=== PATIENT | female | born 1975 | race African-American/Black ===

== ENCOUNTER 2016-07-12 22:59 | Emergency (ER) | payer OTHER ==
[2016-07-12 23:15] VITALS: BP 126/82; PULSE 80; TEMP 99.3; BMI 39.6
--- NOTE | 2016-07-12 23:19 | PDOC ---
History of Present Illness - General Chief Complaint: Pain Stated Complaint: LT ARM PAIN Time Seen by Provider: 07/12/16 23:03 - History of Present Illness Initial Comments: This 41-year-old woman with no significant past medical history presents with a few week history of worsening left forearm pain. Patient states that she feels pain in the elbow/proximal forearm area when lifting objects. Patient works at [employer] and her job routinely involves lifting heavy boxes.; cannot recall any specific trauma to the area and denies falling or otherwise striking her left elbow/forearm area. She did fall approximately 5 months ago, sustaining a tear in the left shoulder. She currently has no shoulder symptoms. There is no numbness/paresthesias of the arm or hand. She denies weakness of the left arm. Past History - Past Medical History Allergies/Adverse Reactions: Allergies Allergy/AdvReac Type Severity Reaction Status Date / Time No Known Allergies Allergy Verified 01/15/16 05:20 Home Medications: Ambulatory Orders Diclofenac Sodium [Voltaren -] 75 mg PO BID PRN #12 tablet. 07/12/16 GI Disorders: Yes (GASTRITIS) - Psycho/Social/Smoking Cessation Hx Anxiety: No Suicidal Ideation: No Smoking Status: No Smoking History: Never smoked Have you smoked in the past 12 months: No Number of Cigarettes Smoked Daily: 0 Hx Alcohol Use: No Drug/Substance Use Hx: No Substance Use Type: None Review of Systems - Review of Systems Able to Perform ROS?: Yes Comments:: 12 point review of systems is negative except for what is noted in the history of present illness *Physical Exam - Vital Signs Last Vital Signs Temp Pulse Resp BP Pulse Ox 99.3 F 80 16 126/82 100 07/12/16 23:13 07/12/16 23:13 07/12/16 23:13 07/12/16 23:13 07/12/16 23:13 - Physical Exam Comments: GENERAL: Adult female, alert and oriented 3, in no acute distress HEAD: Normal with no signs of trauma. EYES: PERRLA, EOMI, sclera anicteric, conjunctiva clear. ENT: Ears normal, nares patent, oropharynx clear without exudates. Dry mucous membranes. NECK: Normal range of motion, supple without lymphadenopathy, JVD, or masses. LUNGS: Breath sounds equal, clear to auscultation bilaterally. No wheezes, and no crackles. HEART:Regular rate and rhythm, normal S1 and S2 without murmur, rub or gallop. ABDOMEN:.normal bowel sounds No guarding,tenderness or rebound.No masses No distention. EXTREMITIES: Left upper extremitymild tenderness to palpation lateral (radial) aspect of proximal forearm without edema or deformity Pain reproduced with flexion of elbow and supination of forearm Minimal tenderness of antecubital fossa; no step offs palpated in biceps tendon Strength intact with 5/5 motor strength in flexion/extension of elbow and movement of forearm Remainder of extremity exam is normal NEUROLOGICAL: Cranial nerves II through XII grossly intact. Normal speech. No focal neurological deficits. MUSCULOSKELETAL: Back non-tender to palpation, no CVA tenderness SKIN: Warm, Dry, normal turgor, no rashes or lesions noted. Medical Decision Making - Medical Decision Making Clinical presentation most consistent with strain of the left brachioradialis muscle. Patient had no specific trauma but is at risk for overusing this muscle in her work (lifting heavy boxes). Kenton wrap applied to the distal left upper arm/left elbow/proximal left forearm. Kenton wrap should be in place during the day until evaluation by orthopedic group. Patient has been seen by [facility] in the past. She will be given documentation not to work tomorrow; she is scheduled to have off from work the following day. She should call orthopedic office on Thursday, July 14 to arrange follow-up Although the patient has a history of gastritis, she occasionally takes Aleve for pain. Patient states that she will take the [id number] Aleve that she has at home after eating a meal. Also, prescription for diclofenac 75 mg twice a day as needed for pain will be transmitted to her pharmacy. *DC/Admit/Observation/Transfer Diagnosis at time of Disposition: Brachioradialis muscle tenderness - Discharge Dispostion Disposition: HOME Condition at time of disposition: Stable - Prescriptions Prescriptions: Diclofenac Sodium [Voltaren -] 75 mg PO BID PRN #12 tablet.dr DILLARD Reason: Pain - Referrals Referrals: Rik Villalba MD [Staff Physician] - 2 Days - Patient Instructions Printed Discharge Instructions: DI for Tendinitis Additional Instructions: kenton wrap during day until seen by orthopedic group avoid lifting/pushing/pulling heavy objects No work tomorrow Diclofenac 75 mg twice a day as needed ;TAKE WITH FOOD call Dr Villalba orthopedic group to followup within 2-3 days - Post Discharge Activity Work/School Note: Back to Work
== END 2016-07-12 23:49 | disposition home or self-care (01) ==
LOC: FER 22:59
DX: M79.632 Pain in left forearm (principal); K29.70 Gastritis, unspecified, without bleeding; X58.XXXA Exposure to other specified factors, initial encounter; Y93.9 Activity, unspecified; Y92.9 Unspecified place or not applicable
CPT/HCPCS: 99282-25

== ENCOUNTER 2016-09-19 22:27 | Emergency (ER) | payer OTHER ==
--- NOTE | 2016-09-19 22:30 | PDOC ---
History of Present Illness - General Chief Complaint: Pain, Acute Stated Complaint: ABDOMINAL PAIN Time Seen by Provider: 09/19/16 22:30 History Source: Patient Exam Limitations: No Limitations - History of Present Illness Initial Comments: 09/19/16 23:05 This is a 41-year-old female comes in complaining of a vaginal yeast infection. Patient said she gets a vaginal yeast infection around the time of her menses. Aeration is due for her menstrual period and is complaining of the a whitish discharge with itching. Patient denies any abdominal pain, pelvic pain, fever, chills or any other complaints. PAST MEDICAL HISTORY: no significant history PAST SURGICAL HISTORY: no significant history FAMILY HISTORY: no pertinant history SOCIAL HISTORY: Pt lives with family and is employed. MEDICATIONS: reviewed ALLERGIES: As per nursing notes Review of Systems General: No fevers or chills, no weakness, no weight loss HEENT: No change in vision. No sore throat,. No ear pain CardioVascular: No chest pain or shortness of breath Respiratory:No cough, or wheezing. Gastrointestinal: no nausea, vomitting, diarrhea or constipation, No rectal bleeding Genitourinary: No dysuria, hematuria, or frequency Musculoskeletal: No joint or muscle pain or swelling Neurologic: No headache, vertigo, dizziness or loss of consciousness Psychiatric: nor depression Skin: No rashes or easy bruising Endocrine: no increased thirst or abnormal weight change Allergic: no skin or latex allergy All other systems reviewed and normal GENERAL: The patient is awake, alert, and fully oriented, in no acute distress. HEAD: Normal with no signs of trauma. EYES: Pupils equal, round and reactive to light, extraocular movements intact, sclera anicteric, conjunctiva clear. EXTREMITIES: Normal range of motion, no edema. : There is a moderate amount of erythema of the external genitalia with a thick whitish discharge. There is some excoriations to the area. NEUROLOGICAL: Normal speech, normal gait. PSYCH: Normal mood, normal affect. SKIN: Warm, Dry, normal turgor, no rashes or lesions noted. Assessment and plan: This is a 41-year-old female with a vaginal yeast and infection. Patient given Diflucan here in the emergency room and a prescription for additional Diflucan. Patient told to follow-up with her central sterile technician regarding the frequent vaginal yeast infections. Past History - Past Medical History Allergies/Adverse Reactions: Allergies Allergy/AdvReac Type Severity Reaction Status Date / Time No Known Allergies Allergy Verified 01/15/16 05:20 Home Medications: Ambulatory Orders Fluconazole [Diflucan -] 100 mg PO ONCE #4 tablet MDD 1 09/19/16 GI Disorders: Yes (GASTRITIS) - Psycho/Social/Smoking Cessation Hx Anxiety: No Suicidal Ideation: No Smoking Status: No Smoking History: Never smoked Have you smoked in the past 12 months: No Number of Cigarettes Smoked Daily: 0 Hx Alcohol Use: No Drug/Substance Use Hx: No Substance Use Type: None *DC/Admit/Observation/Transfer Diagnosis at time of Disposition: Candidiasis of vagina - Discharge Dispostion Disposition: HOME Condition at time of disposition: Stable - Prescriptions Prescriptions: Fluconazole [Diflucan -] 100 mg PO ONCE #4 tablet MDD 1 - Patient Instructions Additional Instructions: I a prescription to your pharmacy for some additional medication that you can take for vaginal yeast infections if you're medication were given in the emergency room does not take care of the itching and yeast infection take one more Diflucan in 2 days. It is still not better you need to follow-up with your central sterile technician for reevaluation. I'm giving you a total of 4 tablets in case she needs some for the future. Return to the emergency department immediately with ANY new, persistent or worsening symptoms. Continue any medications as previously prescribed by your physician. You should follow up with your primary doctor as soon as possible regarding today's emergency department visit. . Please make sure your doctor reviews the results of your emergency evaluation. Thank you for coming to the Emergency Department today for your care. It was a pleasure to see you today. Please note that your evaluation is INCOMPLETE until you follow-up with your doctor.
[2016-09-19 22:35] VITALS: BP 125/86; PULSE 88; TEMP 98.9; BMI 39.6
[2016-09-19 22:49] LABS: URINE APPEARANCE Clear; URINE BILIRUBIN Negative (NEGATIVE); URINE BLOOD 2+ (NEGATIVE); URINE GLUCOSE (UA) Negative (NEGATIVE); URINE KETONE Negative (NEGATIVE); URINE LEUK ESTERASE Negative (NEGATIVE); URINE NITRITE Negative (NEGATIVE)
[2016-09-19 22:50] LABS: URINE COLOR YELLOW; URINE PROTEIN 1+ (NEGATIVE)
[2016-09-19] MEDS ORDERED: FLUCONAZOLE 100 MG TABLET (UD) PO ONE (22:51)
[2016-09-19] MEDS ORDERED: FLUCONAZOLE 50 MG TABLET PO ONE (23:03)
[2016-09-19] MEDS ORDERED: FLUCONAZOLE 150 MG TABLET PO ONE (23:04)
[2016-09-19 23:08] LABS: URINE BACTERIA FEW /hpf (NEGATIVE); URINE WBC 0-2 (3-5)
== END 2016-09-19 23:11 | disposition home or self-care (01) ==
LOC: FER 22:27
DX: B37.3 Candidiasis of vulva and vagina (principal)
CPT/HCPCS: 81003; 81015; 84703; 99282-25

== ENCOUNTER 2017-01-28 12:06 | Emergency (ER) | payer OTHER ==
[2017-01-28 12:24] VITALS: BP 113/56; PULSE 81; TEMP 99; BMI 39.6
--- NOTE | 2017-01-28 12:35 | PDOC ---
History of Present Illness - General Chief Complaint: Pain Stated Complaint: right leg pain Time Seen by Provider: 01/28/17 12:24 - History of Present Illness Initial Comments: 01/28/17 14:23 Chief complaint: Right leg pain History of present illness: Develop pain in the right leg, popliteal fossa and medial thigh radiating to the posterior calf. No injury or other trauma, although she works on her feet all day at [employer]. Pain is present at rest and with ambulation. She feels the leg is swollen Review of systems: No fever/chills, URI symptoms, sore throat, cough, chest pain , shortness of breath, abdominal pain, nausea, vomiting, diarrhea, visual or focal neurologic symptoms, unsteadiness of gait, vaginal bleeding or discharge, urinary tract symptoms. Past medical history: Patient denies serious medical or surgical problems past her present, takes no medication. Specifically, there is no history of blood clots, recent travel, oral contraceptive or other hormone use, or smoking Social/family history reviewed and noncontributory Physical exam: Alert and oriented well-developed well-nourished no acute distress cheerful and cooperative Afebrile, vital signs normal PERRLA, ENT clear Neck supple without bruit mass or nodes Chest clear with full breath sounds throughout bilaterally CV regular without murmur rub or gallop Abdomen benign Neurologic intact Extremities: There is tenderness in the right popliteal fossa, distal posterior thigh, and posterior calf, to palpation. No cords are present. Ora is negative. Pulses are full. No distal sensory or motor deficits. No erythema, heat, or edema. Impression: Although there are no risk factors for DVT, symptoms are suggestive. Other possibilities are overuse/muscle strain, ruptured popliteal cyst. Plan: D-dimer. If positive, leg scan. Further evaluation and treatment depending on results. Past History - Past Medical History Allergies/Adverse Reactions: Allergies Allergy/AdvReac Type Severity Reaction Status Date / Time No Known Allergies Allergy Verified 01/28/17 12:08 Home Medications: Ambulatory Orders Cyclobenzaprine HCl [Flexeril -] 10 mg PO TID #15 tablet 01/28/17 Ibuprofen 800 mg PO TID #20 tablet 01/28/17 COPD: No GI Disorders: Yes (GASTRITIS) - Suicide/Smoking/Psychosocial Hx Smoking Status: No Smoking History: Never smoked Have you smoked in the past 12 months: No Number of Cigarettes Smoked Daily: 0 Hx Alcohol Use: No Drug/Substance Use Hx: No Substance Use Type: None *Physical Exam - Vital Signs Last Vital Signs Temp Pulse Resp BP Pulse Ox 99 F 81 18 113/56 98 01/28/17 12:07 01/28/17 12:07 01/28/17 12:07 01/28/17 12:07 01/28/17 12:07 Medical Decision Making - Medical Decision Making 01/28/17 14:55 D-dimer is negative Most likely muscle strain or ruptured Colón's cyst. Kenton wrap applied. Patient more comfortable and ambulating adequately. Distal pulses preserved. No distal numbness or tingling. To follow-up with primary physician after 3 or 4 days of rest ice and elevation. *DC/Admit/Observation/Transfer Diagnosis at time of Disposition: Musculoskeletal pain - Discharge Dispostion Disposition: HOME Condition at time of disposition: Stable Admit: No - Prescriptions Prescriptions: Cyclobenzaprine HCl [Flexeril -] 10 mg PO TID #15 tablet Ibuprofen 800 mg PO TID #20 tablet - Referrals - Patient Instructions Printed Discharge Instructions: DI for Calf Muscle Strain Additional Instructions: Rest, ice, Kenton wrap as directed. Medication as directed. See your doctor for follow-up if no improvement. - Post Discharge Activity Forms/Work/School Notes: Back to Work
[2017-01-28] MEDS ORDERED: IBUPROFEN 400 MG TABLET (FP) PO ONE ×2 (14:49→14:53)
== END 2017-01-28 14:59 | disposition home or self-care (01) ==
LOC: FER 12:06
DX: M79.1 Myalgia (principal)
CPT/HCPCS: 36415; 85379; 99282-25

== ENCOUNTER 2017-03-02 13:43 | Emergency (ER) | payer OTHER ==
[2017-03-02 13:59] VITALS: BP 115/66; PULSE 70; TEMP 97.3; BMI 39.6
[2017-03-02] MEDS ORDERED: ONDANSETRON 4 MG/2 ML VIAL IVPB ONE ×2 (14:57→17:23)
[2017-03-02] MEDS ORDERED: SODIUM CHLORIDE 1,000 ML IV STA (14:57)
[2017-03-02] MEDS ORDERED: PANTOPRAZOLE SODIUM 40 MG in SODIUM CHLORIDE 100 ML IVPB ONE (14:57)
--- NOTE | 2017-03-02 14:58 | PDOC ---
History of Present Illness - History of Present Illness Initial Comments: 03/02/17 15:23 The patient is a 41 year old female, with no significant past medical history, who presents to the emergency department with general malaise and abdominal pain for 5 days. Patient states that she has been feeling epigastric pain weakness, nausea, headache, and dizziness since last Thursday. She denies any recent sick contacts. Patient states that years ago she had gastroenteritis. She denies any current burning sensation in her abdomen. She states that she did not take anything for the pain. She states she is experiencing regular bowel movements. She denies recent fevers or chills. She denies recent vomit, diarrhea or constipation. She denies recent dysuria, frequency, urgency or hematuria. She denies recent vaginal bleeding. She denies recent chest pain or shortness of breath. Allergies: NKA Past surgical history: . Social history: Nonsmoker. Denies EtOH use and recreational drug use. <Linda White - Last Filed: 03/02/17 15:35> - History of Present Illness Initial Comments: Physical exam: Alert and oriented well-developed well-nourished no acute distress cooperative Afebrile, vital signs normal HEENT clear Neck supple without bruit mass or nodes Chest clear with full breath sounds throughout bilaterally CV S1 and S2 normal without murmur rub or gallop pulses full and symmetric no JVD or edema no bruits Abdomen nondistended. Bowel sounds normal. Soft without mass or organomegaly. There is mild tenderness to deep palpation in the epigastrium, without guarding or rebound. No CVAT Neurological intact Extremities no CCE Skin clear, no rash, adequate turgor and wet mucous membranes Impression: Nausea with no vomiting or diarrhea. No significant abdominal pain or tenderness. Most likely acute viral syndrome. Viral gastroenteritis. Rule out . Plan: CBC, chemistries, urinalysis, test, IV fluids and Zofran, Protonix, observation. <Mario Worthington - Last Filed: 03/04/17 07:19> - General Chief Complaint: Cold Symptoms Stated Complaint: cold symptoms headache facial pain post nasal Time Seen by Provider: 03/02/17 14:16 Past History <Linda White - Last Filed: 03/02/17 15:35> - Past Medical History COPD: No GI Disorders: Yes (GASTRITIS) - Suicide/Smoking/Psychosocial Hx Smoking Status: No Smoking History: Never smoked Have you smoked in the past 12 months: No Number of Cigarettes Smoked Daily: 0 Information on smoking cessation initiated: No Hx Alcohol Use: No Drug/Substance Use Hx: No Substance Use Type: None <Mario Worthington - Last Filed: 03/04/17 07:19> - Past Medical History Allergies/Adverse Reactions: Allergies Allergy/AdvReac Type Severity Reaction Status Date / Time No Known Allergies Allergy Verified 03/02/17 13:48 Home Medications: Ambulatory Orders Ondansetron [Zofran Odt -] 4 - 8 mg SL TID PRN #10 od.tablet 03/02/17 Pantoprazole Sodium [Protonix] 40 mg PO DAILY #14 tablet. 03/02/17 Review of Systems - Review of Systems Comments:: 03/02/17 15:32 CONSTITUTIONAL: Present: generalized weakness, malaise Absent: fever, chills, diaphoresis, loss of appetite HEENT: Absent: rhinorrhea, nasal congestion, throat pain, throat swelling, difficulty swallowing, mouth swelling, ear pain, eye pain, visual Changes CARDIOVASCULAR: Absent: chest pain, syncope, palpitations, irregular heart rate, peripheral edema RESPIRATORY: Absent: cough, shortness of breath, dyspnea with exertion, orthopnea, wheezing, stridor, hemoptysis GASTROINTESTINAL: Present: epigastric pain, nausea Absent: abdominal distension, vomiting, diarrhea, constipation, melena, hematochezia GENITOURINARY: Absent: dysuria, frequency, urgency, hesitancy, hematuria, flank pain, genital pain MUSCULOSKELETAL: Absent: myalgia, arthralgia, joint swelling SKIN: Absent: rash, itching, pallor HEMATOLOGIC/IMMUNOLOGIC: Absent: easy bleeding, easy bruising, lymphadenopathy, frequent infections ENDOCRINE: Absent: unexplained weight gain, unexplained weight loss, heat intolerance, cold intolerance NEUROLOGIC: Present: headache, dizziness Absent: focal weakness or paresthesias, unsteady gait, seizure, mental status changes, bladder or bowel incontinence PSYCHIATRIC: Absent: anxiety, depression, suicidal or homicidal ideation, hallucinations. <Linda White - Last Filed: 03/02/17 15:35> *Physical Exam - Vital Signs Last Vital Signs Temp Pulse Resp BP Pulse Ox 97.3 F L 70 16 115/66 100 03/02/17 13:47 03/02/17 13:47 03/02/17 13:47 03/02/17 13:47 03/02/17 13:47 <Linda White - Last Filed: 03/02/17 15:35> - Vital Signs Last Vital Signs Temp Pulse Resp BP Pulse Ox 97.3 F L 70 16 115/66 100 03/02/17 13:47 03/02/17 13:47 03/02/17 13:47 03/02/17 13:47 03/02/17 13:47 <Mario Worthington - Last Filed: 03/04/17 07:19> ED Treatment Course - Medications Given in the ED: ED Medications Discontinued Medications Generic Name Dose Route Start Last Admin Trade Name Lucq PRN Reason Stop Dose Admin Ondansetron HCl 4 mg 03/02/17 14:57 03/02/17 15:17 Zofran Injection IVPB 03/02/17 14:58 4 mg ONCE ONE Administration <Linda White - Last Filed: 03/02/17 15:35> - LABORATORY CBC & Chemistry Diagram: 03/02/17 15:11 03/02/17 16:00 <Mario Worthington - Last Filed: 03/04/17 07:19> Medical Decision Making - Medical Decision Making 03/04/17 07:17 Labs show no significant abnormalities. test is negative. The patient slept for a considerable length of time. She claims that she is still mildly nauseated. There is been no vomiting or diarrhea. Her abdominal exam remains benign. Tentative diagnosis is viral gastroenteritis. Continue oral fluids, Zofran, and Protonix. See GI specialist if symptoms persist. Return to ER if symptoms worsen or any additional pain, vomiting, or diarrhea Fully ambulatory and in no distress upon discharge to follow-up as recommended <Mario Worthington - Last Filed: 03/04/17 07:19> *DC/Admit/Observation/Transfer - Attestations Scribe Attestion: 03/02/17 15:34 Documentation prepared by Linda White, acting as medical and health services manager for Mario Garrido MD. <Linda White - Last Filed: 03/02/17 15:35> - Discharge Dispostion Admit: No <Mario Worthington - Last Filed: 03/04/17 07:19> Diagnosis at time of Disposition: Viral gastroenteritis - Discharge Dispostion Disposition: HOME Condition at time of disposition: Improved - Prescriptions Prescriptions: Ondansetron [Zofran Odt -] 4 - 8 mg SL TID PRN #10 od.tablet PRN Reason: Nausea And/Or Vomiting Pantoprazole Sodium [Protonix] 40 mg PO DAILY #14 tablet.dr - Referrals Referrals: Domo Hess MD [Staff Physician] - - Patient Instructions Printed Discharge Instructions: DI for Viral Gastroenteritis -- Adult Additional Instructions: Return to ER if symptoms worsen. Otherwise follow-up with mobile device developer as instructed. - Post Discharge Activity Forms/Work/School Notes: Back to Work
[2017-03-02] MEDS ORDERED: ONDANSETRON 4 MG/2 ML VIAL ONE ×2 (15:16→18:09)
[2017-03-02] MEDS ORDERED: PANTOPRAZOLE SODIUM 40 MG VIAL ONE (15:16)
[2017-03-02 15:43] LABS: PH,URINE 5.5 (4.5-8); URINE APPEARANCE Clear; URINE BILIRUBIN Negative (NEGATIVE); URINE GLUCOSE (UA) Negative (NEGATIVE); URINE KETONE Trace (NEGATIVE); URINE NITRITE Negative (NEGATIVE); URINE PROTEIN Trace (NEGATIVE); URINE UROBILINOGEN 0.2 (0.2-1.0)
[2017-03-02 15:48] LABS: URINE BLOOD 1+ (NEGATIVE)
[2017-03-02 15:49] LABS: HCG,QUALITATIVE URINE NEGATIVE; URINE COLOR YELLOW
[2017-03-02 15:50] LABS: HEMOGLOBIN 12.6 GM/dl (10.7-15.3)
[2017-03-02 15:51] LABS: URINE BACTERIA FEW /hpf (NEGATIVE); URINE WBC 0-2 (0-5)
[2017-03-02 15:53] LABS: BASO % 0.9 % (0-2.0); EOS % 1.5 % (0-4.5); HEMATOCRIT 39.3 % (32.4-45.2); MCH 27.7 pg (25.7-33.7); MCHC 32.2 g/dl (32.0-36.0); MEAN CELL VOLUME 86.3 fl (80-96); MEAN PLT VOLUME 8.5 fl (7.5-11.1); MONO % 6.7 % (3.8-10.2); NEUT % 51.9 % (42.8-82.8); PLATELET COUNT 350 K/MM3 (134-434); RBC 4.55 M/mm3 (3.60-5.2); RDW 13.1 % (11.6-15.6); WHITE BLOOD COUNT 6.8 K/mm3 (4.0-10.8)
[2017-03-02 16:45] LABS: ALBUMIN 3.1 g/dl (3.5-5.0); ALK PHOS 63 U/L (32-92); ANION GAP 6 (8-16); BILIRUBIN,TOTAL 0.5 mg/dl (0.2-1.0); BLOOD UREA NITROGEN 14 mg/dl (7-18); CALCIUM 8.7 mg/dl (8.4-10.2); CHLORIDE 105 mmol/L (98-107); CO2 25 mmol/L (22-28); CREATININE 0.7 mg/dl (0.6-1.3); GLUCOSE,RANDOM 93 mg/dl (74-106); LIPASE 10 U/L (22-51); POTASSIUM 3.8 mmol/L (3.5-5.1); SGOT/AST 17 U/L (10-42); SGPT/ALT 16 U/L (10-40); SODIUM 136 mmol/L (136-145); TOT PROT 6.4 g/dl (6.4-8.3)
[2017-03-02] MEDS ORDERED: MAG HYDROX/AL HYDROX/SIMETH 355 ML ORAL.SUSP PO ONE (17:24)
[2017-03-02] MEDS ORDERED: MAG HYDROX/AL HYDROX/SIMETH 30 ML UNIT-DOSE CUP ONE (18:09)
== END 2017-03-02 19:09 | disposition home or self-care (01) ==
LOC: FER 13:43
PROC: 3E033GC Introduction of Other Therapeutic Substance into Peripheral Vein, Percutaneous Approach (ICD-10-PCS; principal; 2017-03-02)
PROC: 3E0337Z Introduction of Electrolytic and Water Balance Substance into Peripheral Vein, Percutaneous Approach (ICD-10-PCS; 2017-03-02)
DX: A08.4 Viral intestinal infection, unspecified (principal); B97.89 Other viral agents as the cause of diseases classified elsewhere
CPT/HCPCS: 36415; 80053; 81003; 81015; 83690; 84703; 85025; 99283-25

== ENCOUNTER 2017-04-12 01:15 | Emergency (ER) | payer OTHER ==
[2017-04-12 02:07] VITALS: BP 104/70; PULSE 80; TEMP 98.9; BMI 38.4
--- NOTE | 2017-04-12 02:10 | PDOC ---
History of Present Illness - General Chief Complaint: Chest Pain Stated Complaint: CHEST PAIN FOR FEW SECS - History of Present Illness Initial Comments: 04/12/17 07:03 hx of muscle spasms presents today with brief episode of chest spasms, about five minutes in duration no dyspnea, no nausea, no daiphoresis cardiac risk factors: denies all PE RFs: denies all pmh: denies fhx: noncontrib ros: reviewed and otherwise negative o/q NAD no diaphoresis mmm no adenopathy rrr cta no chest tenderness abd nt no LE edema a/p ekg normal sinus with normal intervals, nl axis, no ischemic findings a/p nonspecific chest pain. atypical for cardiac without risk factors; will not pursue beyond EKG PERCs pain resolved return to ED for recurrence Past History - Past Medical History Allergies/Adverse Reactions: Allergies Allergy/AdvReac Type Severity Reaction Status Date / Time No Known Allergies Allergy Verified 04/12/17 01:16 Home Medications: Ambulatory Orders NK [No Known Home Medication] 04/12/17 COPD: No GI Disorders: Yes (GASTRITIS) - Suicide/Smoking/Psychosocial Hx Smoking Status: No Smoking History: Never smoked Have you smoked in the past 12 months: No Number of Cigarettes Smoked Daily: 0 Information on smoking cessation initiated: No Hx Alcohol Use: No Drug/Substance Use Hx: No Substance Use Type: None *Physical Exam - Vital Signs Last Vital Signs Temp Pulse Resp BP Pulse Ox 98.9 F 80 18 104/70 100 04/12/17 01:20 04/12/17 01:20 04/12/17 01:20 04/12/17 01:20 04/12/17 01:20 *DC/Admit/Observation/Transfer Diagnosis at time of Disposition: Chest pain Qualifiers: Chest pain type: unspecified Qualified Code(s): R07.9 - Chest pain, unspecified - Discharge Dispostion Disposition: HOME Condition at time of disposition: Good - Referrals - Patient Instructions Printed Discharge Instructions: DI for Atypical Chest Pain - Post Discharge Activity
--- NOTE | 2017-04-15 13:13 | EKG ---
Test Reason : Blood Pressure : / mmHG Vent. Rate : 069 BPM Atrial Rate : 069 BPM P-R Int : 158 ms QRS Dur : 076 ms QT Int : 366 ms P-R-T Axes : 045 040 029 degrees QTc Int : 392 ms NORMAL SINUS RHYTHM NORMAL ECG NO PREVIOUS ECGS AVAILABLE Confirmed by JOSE DE JESUS ROBLES MD ([id number]) on 04/15/2017 1:12:57 PM Referred By: MD AGUILAR Confirmed By:JOSE DE JESUS ROBLES MD
== END 2017-04-12 02:08 | disposition home or self-care (01) ==
LOC: FER 01:15
DX: R07.9 Chest pain, unspecified (principal)
CPT/HCPCS: 93005; 93010; 99282-25

== ENCOUNTER 2017-08-19 06:53 | Emergency (ER) | payer OTHER ==
[2017-08-19 07:01] VITALS: TEMP 99.2; BMI 38.4
--- NOTE | 2017-08-19 07:15 | PDOC ---
History of Present Illness - General Chief Complaint: Sore Throat Stated Complaint: SORE THROAT & HEADACHE Time Seen by Provider: 08/19/17 07:14 History Source: Patient Exam Limitations: No Limitations - History of Present Illness Initial Comments: 08/19/17 07:14 Ms Moscoso is a 42 yo F who presents to the ER with a complaint of sore throat Pt states her symptoms began yesterday No fevers noted, thought she feels warm Pain with swallowing No drooling No limitations in range of motion of the neck No voice changes No cough, shortness of breath or wheezing No ill contacts Pt has not taken any motrin or tylenol prior to presenting to the ER No vomiting or diarrhea Tolerating foods and liquids No headache Pt has pain in the neck overlying lymph nodes PMH: PSH: C section Meds: denies ALL: NKDA Social: denies drug or cigarette use FH: non contributory GENERAL/CONSTITUTIONAL: No: fever, chills, weakness, loss of appetite. HEAD, EYES, EARS, NOSE AND THROAT: Yes: sore throat No: change in vision, ear pain, discharge CARDIOVASCULAR: No: chest pain, lightheadedness, palpitations, syncope RESPIRATORY: No: cough, shortness of breath, wheezing, hemoptysis, stridor. GASTROINTESTINAL: No: nausea, vomiting, diarrhea, abdominal pain GENITOURINARY: No: dysuria, hematuria, frequency, urgency, flank pain. MUSCULOSKELETAL: No: back pain, neck pain, joint pain, muscle swelling or pain SKIN : No: lesions, pallor, rash or easy bruising. NEUROLOGIC: No: headache, vertigo, paresthesias, weakness ENDOCRINE: No: unexplained weight gain or loss HEMATOLOGIC/LYMPHATIC: No: anemia, easy bleeding, swelling nodes. Physical Exam GENERAL: The patient is in no acute distress. HEAD: Normal EYES: PERRLA, EOMI, sclera anicteric, conjunctiva clear. ENT: Ears normal, nares patent, oropharynx right tonsillar enlargement, (+) exudate, no vesicular lesions, minimally erythematous. Moist mucous membranes. NECK: Normal range of motion, supple (+) painful lymphadenopathy, no cervical spine tenderness Kernig's and Brudzinski negative LUNGS: Breath sounds equal, clear to auscultation bilaterally. No wheezes, and no crackles. HEART:Regular rate and rhythm, normal S1 and S2 without murmur, rub or gallop. ABDOMEN: Soft, nontender, normoactive bowel sounds. No guarding, no rebound. EXTREMITIES: Normal range of motion NEUROLOGICAL: Cranial nerves II through XII grossly intact. Normal speech. No focal neurological deficits. SKIN: Warm, Dry, normal turgor, no rashes or lesions noted. 08/19/17 07:22 08/19/17 07:44 Past History - Past Medical History Allergies/Adverse Reactions: Allergies Allergy/AdvReac Type Severity Reaction Status Date / Time No Known Allergies Allergy Verified 08/19/17 06:55 Home Medications: Ambulatory Orders NK [No Known Home Medication] 04/12/17 COPD: No GI Disorders: Yes (GASTRITIS) - Suicide/Smoking/Psychosocial Hx Smoking Status: No Smoking History: Never smoked Have you smoked in the past 12 months: No Number of Cigarettes Smoked Daily: 0 Hx Alcohol Use: Yes (SOCIAL) Drug/Substance Use Hx: No Substance Use Type: None *Physical Exam - Vital Signs Last Vital Signs Temp Pulse Resp BP Pulse Ox 99.2 F 95 H 16 145/93 100 08/19/17 06:54 08/19/17 06:54 08/19/17 06:54 08/19/17 06:54 08/19/17 06:54 ED Treatment Course - LABORATORY CBC & Chemistry Diagram: 08/19/17 08:20 08/19/17 08:20 Medical Decision Making - Medical Decision Making 08/19/17 07:53 Pt with throat pain DD: strep pharyngitis, viral pharyngitis, viral upper respiratory infection, mononucleosis I do not believe this patient demonstrates signs of meningitis Rapid strep sent Motrin given 08/19/17 08:05 Pt strep neg States motrin has minimally helped Will do basic labs Will start IV hydration ? viral meningitis Landmarks challenging Will place on observation ?IR guided LP 08/19/17 08:57 CXR negative 08/19/17 09:23 Laboratory Tests 08/19/17 08/19/17 08:20 08:20 WBC 9.3 D Hgb 11.7 Hct 34.8 Plt Count 308 INR 1.10 08/19/17 09:57 Laboratory Tests 08/19/17 08/19/17 08:20 08:35 Sodium 135 L Potassium 3.9 Chloride 105 Carbon Dioxide 26 BUN 11 D Creatinine 0.7 Random Glucose 105 Urine Blood 1+ H Urine Nitrite Negative Ur Leukocyte Esterase Negative PT states she feels the same Will place on observation 08/19/17 11:38 Case reviewed with Hospitalist ADOLFO Sanford has consulted on this patient Does not think pt needs to be admitted Will discharge Pt given strict return precautions Clinical Impression: upper respiratory infection, initial presentation 08/22/17 08:15 *DC/Admit/Observation/Transfer Diagnosis at time of Disposition: Viral pharyngitis Upper respiratory infection Qualifiers: URI type: unspecified URI Qualified Code(s): J06.9 - Acute upper respiratory infection, unspecified - Discharge Dispostion Disposition: HOME Condition at time of disposition: Stable Decision to Admit order: No - Referrals Referrals: Jeffrey Moreland MD [Primary Care Provider] - - Patient Instructions Printed Discharge Instructions: DI for Viral Upper Respiratory Infection -- Adult, DI for Viral Pharyngitis Additional Instructions: Ms Moscoso Thank you for coming in to the ER Please take Tylenol and Motrin every 4 hours in alternation as needed for the pain or fevers Your strep screen was negative so it is most likely that this is viral in nature. Your throat culture will be confirmed in about 2 days Return to the emergency department immediately with ANY new, persistent or worsening symptoms. Continue any medications as previously prescribed by your physician. You should follow up with your primary doctor as soon as possible regarding today's emergency department visit. Please make sure your doctor reviews the results of your emergency evaluation. Thank you for coming to the [facility] today for your care. It was a pleasure to see you today. Please note that your evaluation is INCOMPLETE until you follow-up with your doctor. - Post Discharge Activity Forms/Work/School Notes: Back to Work
[2017-08-19] MEDS ORDERED: IBUPROFEN 600 MG TABLET (FP) PO ONE ×2 (07:21→07:32)
[2017-08-19 08:49] LABS: INR 1.1 (0.82-1.09); PROTHROMBIN TIME (PATIENT) 12.3 SEC (10.2-13.0)
[2017-08-19 09:03] LABS: BASO % 0.5 % (0-2.0); EOS % 1.5 % (0-4.5); HEMATOCRIT 34.8 % (32.4-45.2); HEMOGLOBIN 11.7 GM/dl (10.7-15.3); LYMPH % 21.6 % (8-40); MCH 28.7 pg (25.7-33.7); MCHC 33.7 g/dl (32.0-36.0); MEAN CELL VOLUME 85.3 fl (80-96); MEAN PLT VOLUME 7.7 fl (7.5-11.1); MONO % 6.9 % (3.8-10.2); NEUT % 69.5 % (42.8-82.8); PLATELET COUNT 308 K/MM3 (134-434); RBC 4.07 M/mm3 (3.60-5.2); RDW 12.3 % (11.6-15.6); WHITE BLOOD COUNT 9.3 K/mm3 (4.0-10.8)
[2017-08-19 09:14] LABS: ALBUMIN 3.4 g/dl (3.5-5.0); ALK PHOS 68 U/L (32-92); ANION GAP 4 (8-16); BILIRUBIN,TOTAL 0.3 mg/dl (0.2-1.0); BLOOD UREA NITROGEN 11 mg/dl (7-18); CALCIUM 8.8 mg/dl (8.4-10.2); CHLORIDE 105 mmol/L (98-107); CO2 26 mmol/L (22-28); CREATININE 0.7 mg/dl (0.6-1.3); GLUCOSE,RANDOM 105 mg/dl (74-106); POTASSIUM 3.9 mmol/L (3.5-5.1); SGOT/AST 18 U/L (10-42); SGPT/ALT 22 U/L (10-40); SODIUM 135 mmol/L (136-145); TOT PROT 6.6 g/dl (6.4-8.3)
[2017-08-19] MEDS ORDERED: SODIUM CHLORIDE 1,000 ML IV STA (09:23)
[2017-08-19 09:49] LABS: PH,URINE 5.5 (4.5-8); URINE APPEARANCE Clear; URINE BILIRUBIN Negative (NEGATIVE); URINE COLOR AMBER; URINE GLUCOSE (UA) Negative (NEGATIVE); URINE KETONE Negative (NEGATIVE); URINE LEUK ESTERASE Negative (NEGATIVE); URINE NITRITE Negative (NEGATIVE); URINE PROTEIN Negative (NEGATIVE); URINE UROBILINOGEN 0.2 (0.2-1.0)
[2017-08-19 09:51] VITALS: BP 100/59; PULSE 78
[2017-08-19] MEDS ORDERED: ACETAMINOPHEN 1000 MG/100 ML VIAL (NON FORMULARY) IVPB ONE (10:13)
[2017-08-19] MEDS ORDERED: ACETAMINOPHEN INJECTION 100 ML IVPB ONE (10:15)
[2017-08-19 10:23] LABS: EPI CELLS FEW /HPF
== END 2017-08-19 12:15 | disposition home or self-care (01) ==
LOC: FER 06:53
PROC: 3E033NZ Introduction of Analgesics, Hypnotics, Sedatives into Peripheral Vein, Percutaneous Approach (ICD-10-PCS; principal; 2017-08-19)
PROC: 3E0337Z Introduction of Electrolytic and Water Balance Substance into Peripheral Vein, Percutaneous Approach (ICD-10-PCS; 2017-08-19)
DX: B34.9 Viral infection, unspecified (principal); J06.9 Acute upper respiratory infection, unspecified
CPT/HCPCS: 36415; 71046-TC-FY; 80053; 81003; 81015; 84703; 85025; 85610; 87040; 87070; 87086; 87430; 99282-25; J0131; J7030

== ENCOUNTER 2018-05-15 00:23 | Emergency (ER) | payer SELFPAY ==
[2018-05-15 00:30] VITALS: BP 117/82; PULSE 90; TEMP 99.3; BMI 39.6
--- NOTE | 2018-05-15 00:36 | PDOC ---
History of Present Illness - General Chief Complaint: Cold Symptoms Stated Complaint: COUGH,BODY ACHES Time Seen by Provider: 05/15/18 00:32 - History of Present Illness Initial Comments: This 42-year-old woman with no significant past medical history presents with 2 day history of body aches/malaise/sore throat/nonproductive cough. Patient states that she has been feeling generally weak for this period of time. She is attempting to hydrate herself and take [id number] medications (Tylenol/ TheraFlu) but has not taken any medication in the last 24 hours. Patient did not receive influenza immunization this year. 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 No history of smoking/asthma; patient states that she generally gets bronchitis yearly but has not yet had a "chest cold" this year No ethanol/no other recreational drug use PMD:Dr Jeffrey Moreland Past History - Past Medical History Allergies/Adverse Reactions: Allergies Allergy/AdvReac Type Severity Reaction Status Date / Time No Known Allergies Allergy Verified 10/13/17 22:53 Home Medications: Ambulatory Orders Oseltamivir Phosphate [Tamiflu -] 75 mg PO BID #10 capsule 05/15/18 COPD: No GI Disorders: Yes (GASTRITIS) - Suicide/Smoking/Psychosocial Hx Smoking Status: No Smoking History: Never smoked Have you smoked in the past 12 months: No Number of Cigarettes Smoked Daily: 0 'Breaking Loose' booklet given: 10/14/17 Hx Alcohol Use: No Drug/Substance Use Hx: No Substance Use Type: None Review of Systems - Review of Systems Able to Perform ROS?: Yes Comments:: 12 point review of systems is negative except for what is noted in the history of present illness *Physical Exam - Vital Signs Last Vital Signs Temp Pulse Resp BP Pulse Ox 99.3 F 90 18 117/82 100 05/15/18 00:26 05/15/18 00:26 05/15/18 00:26 05/15/18 00:26 05/15/18 00:26 - Physical Exam Comments: GENERAL: Adult female, appearing in mild distress secondary to body aches but in no acute respiratory distress; T 99.3F orally;HR 90,117/82, 100%RA HEAD: Normal with no signs of trauma. EYES: PERRLA, EOMI, sclera anicteric, conjunctiva clear. ENT: Ears normal, nares patent, oropharynx clear without exudates. Moist mucous membranes. NECK: Normal range of motion, supple without lymphadenopathy, JVD, or masses. LUNGS: Breath sounds equal, clear to auscultation bilaterally. No wheezes, and no crackles. HEART:Regular rate and rhythm, normal S1 and S2 without murmur, rub or gallop. ABDOMEN:.normal bowel sounds No guarding,tenderness or rebound.No masses No distention. EXTREMITIES: Normal range of motion, no edema. No clubbing or cyanosis. No erythema, or tenderness. NEUROLOGICAL: Cranial nerves II through XII grossly intact. Normal speech. No focal neurological deficits. MUSCULOSKELETAL: Back non-tender to palpation, no CVA tenderness SKIN: Warm, Dry, normal turgor, no rashes or lesions noted. Moderate Sedation - Procedure Monitoring Vital Signs: Procedure Monitoring Vital Signs Temperature 99.3 F 05/15/18 00:26 Pulse Rate 90 05/15/18 00:26 Respiratory Rate 18 05/15/18 00:26 Blood Pressure 117/82 05/15/18 00:26 O2 Sat by Pulse Oximetry (%) 100 05/15/18 00:26 Progress Note - Progress Note Progress Note: Clinical presentation most consistent with acute viral syndrome, very likely influenza in light of myalgias/malaise/low-grade fever/pharyngitis and nonproductive cough. Since patient is not critically ill and is not in a high risk category for complicated influenza, the patient will be discharged after one dose of Tamiflu 75 mg. Prescription for Tamiflu 75 mg twice a day for 5 days sent to her pharmacy. Meanwhile, the patient will rest, drink plenty of fluids, not work for the next 3 days. She will return to the emergency room if she has shortness of breath/ severe cough/high fever/vomiting. *DC/Admit/Observation/Transfer Diagnosis at time of Disposition: Viral syndrome - Discharge Dispostion Disposition: HOME Condition at time of disposition: Stable - Prescriptions Prescriptions: Oseltamivir Phosphate [Tamiflu -] 75 mg PO BID #10 capsule - Referrals - Patient Instructions Printed Discharge Instructions: DI for Viral Syndrome Additional Instructions: rest, drink plenty of fluids Tamiflu 75mg, twice a day, for 5 days Tylenol/Motrin as needed for fever/bodyaches No work until May 18 return to ER if you have severe cough, high fever, difficulty breathing followup with Dr Moreland within the next week - Post Discharge Activity Forms/Work/School Notes: Back to Work
[2018-05-15] MEDS ORDERED: OSELTAMIVIR PHOSPHATE 75 MG CAPSULE ONE (00:56)
== END 2018-05-15 01:13 | disposition home or self-care (01) ==
LOC: FER 00:23
DX: B34.9 Viral infection, unspecified (principal); K29.70 Gastritis, unspecified, without bleeding
CPT/HCPCS: 99281-25

== ENCOUNTER 2018-10-15 20:13 | Emergency (ER) | payer SELFPAY, OTHER | END 2018-10-15 21:07 | disposition home or self-care (01) | LOC: FER 20:13 ==

== ENCOUNTER 2018-10-21 11:24 | Emergency (ER) | payer SELFPAY | END 2018-10-21 12:58 | disposition home or self-care (01) | LOC: FER 11:24 ==

== ENCOUNTER 2019-05-26 12:11 | Emergency (ER) | payer OTHER | END 2019-05-26 12:54 | disposition home or self-care (01) | LOC: FER 12:11 | DX: R05 Cough (principal) | CPT/HCPCS: 99282-25 ==

== ENCOUNTER 2021-09-18 00:03 | Emergency (ER) | payer OTHER ==
[2021-09-18 00:38] VITALS: BP 134/92; PULSE 62; TEMP 98.4; BMI 34.0
[2021-09-18] MEDS ORDERED: KETOROLAC TROMETHAMINE 30 MG/1 ML VIAL IM ONE (00:47)
[2021-09-18] MEDS ORDERED: KETOROLAC TROMETHAMINE 30 MG/1 ML VIAL ONE (00:48)
[2021-09-18] MEDS ORDERED: LIDOCAINE 5% TOPICAL PATCH ONE (00:58)
[2021-09-18] MEDS ORDERED: LIDOCAINE 5% TOPICAL PATCH TP ONE (01:00)
[2021-09-18] MEDS ORDERED: LIDOCAINE PATCH REMOVAL MC SCH (22:00)
== END 2021-09-18 01:05 | disposition home or self-care (01) ==
LOC: FER 00:03
PROC: 3E023GC Introduction of Other Therapeutic Substance into Muscle, Percutaneous Approach (ICD-10-PCS; principal; 2021-09-18)
DX: M54.32 Sciatica, left side (principal)
CPT/HCPCS: 99284-25

== ENCOUNTER 2022-04-29 04:54 | Day surgery (SDC) | payer OTHER ==
[2022-04-28 10:47] VITALS: BMI 37.8
[2022-04-29 13:44] VITALS: TEMP 97.5
[2022-04-29 13:59] VITALS: RESP 18
[2022-04-29 14:26] VITALS: BP 110/93; PULSE 66
== END 2022-04-29 14:21 | disposition home or self-care (01) ==
LOC: JASU-ENDO 04:54
PROVIDERS: ATTEND Student in an Organized Health Care Education/Training Program
PROC: 0DBN8ZX Excision of Sigmoid Colon, Via Natural or Artificial Opening Endoscopic, Diagnostic (ICD-10-PCS; principal; 2022-04-29 12:30)
DX: Z12.11 Encounter for screening for malignant neoplasm of colon (principal); K63.5 Polyp of colon
CPT/HCPCS: 81025; 88305-TC

== ENCOUNTER 2022-08-17 22:08 | Emergency (ER) | payer OTHER ==
[2022-08-17 22:27] VITALS: BP 126/72; PULSE 106; RESP 17; TEMP 99.8; BMI 40.4
== END 2022-08-17 23:04 | disposition home or self-care (01) ==
LOC: JERFT 22:08 → JER 22:08 → JERFT 23:04
DX: Z20.822 Contact with and (suspected) exposure to COVID-19 (principal)
CPT/HCPCS: 87635; 99283-25

== ENCOUNTER 2022-10-19 05:32 | Emergency (ER) | payer OTHER ==
[2022-10-19 05:44] VITALS: BP 110/70; PULSE 90; RESP 16; TEMP 98.6; BMI 34.1
== END 2022-10-19 06:04 | disposition home or self-care (01) ==
LOC: FER 05:32
DX: M25.572 Pain in left ankle and joints of left foot (principal)
CPT/HCPCS: 99283-25